=== PATIENT | male | born 1965 | race American Indian/Alaskan Native ===

== ENCOUNTER 2017-04-01 17:01 | Emergency (ER) | payer OTHER ==
[~2017-04-01] VITALS: Ht 182.9 cm; Wt 83.9 kg
[2017-04-01] MEDS ORDERED: Amoxicillin500 MG PO (17:20)
== END 2017-04-01 17:34 | disposition home or self-care (01) ==
LOC: ER 17:01
DX: K04.7 Periapical abscess without sinus (principal); F17.210 Nicotine dependence, cigarettes, uncomplicated
CPT/HCPCS: 99282

== ENCOUNTER 2018-10-07 13:36 | Emergency (ER) | payer OTHER ==
[~2018-10-07] VITALS: Ht 182.9 cm; Wt 77.1 kg
[~2018-10-07 13:36] MED LIST: Amoxicillin500 MG PO
[2018-10-07] MEDS ORDERED: HYDR1TAB94 PO (14:38)
[2018-10-07] MEDS ORDERED: Ventolin/Prove6.7 GM INH (14:38)
[2018-10-07] MEDS ORDERED: Naprosyn500 MG PO (14:38)
== END 2018-10-07 14:55 | disposition home or self-care (01) ==
LOC: ER 13:36
DX: S62.346A Nondisplaced fracture of base of fifth metacarpal bone, right hand, initial encounter for closed fracture (principal); S20.212A Contusion of left front wall of thorax, initial encounter; V29.9XXA Motorcycle rider (driver) (passenger) injured in unspecified traffic accident, initial encounter; F17.210 Nicotine dependence, cigarettes, uncomplicated
CPT/HCPCS: 29130; 71101; 73130; 94640; 99283-25; J1885